=== PATIENT | female | born 1990 | race Caucasian/White ===

== ENCOUNTER 2020-01-29 10:59 | Emergency (ER) | payer OTHER ==
[~2020-01-29] VITALS: Ht 149.9 cm; Wt 48.5 kg
[2020-01-29 11:05] VITALS: Ht 149.9 cm; Wt 48.5 kg
[2020-01-29 12:45] VITALS: BP 128/74
== END 2020-01-29 12:45 | disposition home or self-care (01) ==
LOC: ED 10:59
DX: N89.8 Other specified noninflammatory disorders of vagina (principal); R31.9 Hematuria, unspecified; Z88.8 Allergy status to other drugs, medicaments and biological substances

== ENCOUNTER 2020-04-06 07:51 | Emergency (ER) | payer OTHER, SELFPAY ==
[~2020-04-06] VITALS: Ht 149.9 cm; Wt 45.4 kg
[2020-04-06 07:54] VITALS: Ht 149.9 cm; Wt 45.4 kg
[2020-04-06 08:39] VITALS: BP 118/86
== END 2020-04-06 08:39 | disposition home or self-care (01) ==
LOC: ED 07:51
DX: B34.9 Viral infection, unspecified (principal); Z20.828 Contact with and (suspected) exposure to other viral communicable diseases; Z88.8 Allergy status to other drugs, medicaments and biological substances
CPT/HCPCS: U0003-CS

== ENCOUNTER 2020-07-31 09:00 | Emergency (ER) | payer OTHER ==
[~2020-07-31] VITALS: Ht 154.9 cm; Wt 45.8 kg
[2020-07-31 09:21] VITALS: Ht 154.9 cm; Wt 45.8 kg
[2020-07-31 10:09] LABS: microscopic required? NO
[2020-07-31 10:56] LABS: UA SPECIFIC GRAVITY >=1.030 (1.005-1.035); urine erythrocyte NEGATIVE (NEGATIVE)
[2020-07-31 12:33] VITALS: BP 118/43
[2020-08-02 04:06] LABS: RAPID PLASMA REAGIN Non Reactive (Non Reactive)
== END 2020-07-31 12:33 | disposition home or self-care (01) ==
LOC: ED 09:00
PROVIDERS: Emergency Medicine
DX: R10.32 Left lower quadrant pain (principal); Z11.3 Encounter for screening for infections with a predominantly sexual mode of transmission; Z88.8 Allergy status to other drugs, medicaments and biological substances
CPT/HCPCS: 87491; 87591